=== PATIENT | female | born 1975 | race Caucasian/White ===

== ENCOUNTER 2017-08-21 00:27 | Emergency (ER) | payer OTHER ==
[~2017-08-21] VITALS: Ht 162.6 cm; Wt 104.3 kg
[2017-08-21 00:50] VITALS: Ht 162.6 cm; Wt 104.3 kg
[2017-08-21 05:00] VITALS: BP 155/96
== END 2017-08-21 05:00 | disposition left against medical advice (07) ==
LOC: ED 00:27
DX: Z53.21 Procedure and treatment not carried out due to patient leaving prior to being seen by health care provider (principal)